=== PATIENT | female | born 2000 | race Two or more races ===

== ENCOUNTER 2025-04-03 16:11 | Emergency (ER) | payer MEDICAID, OTHER ==
[~2025-04-03] VITALS: Ht 157.5 cm; Wt 70.4 kg
--- NOTE | 2025-04-03 16:43 | ED.PDOC ---
HPI Comments HPI: 24 y/o F, with no prior medical history presents to the ED for CC of chest pain. Patient states, she has been experiencing intermittent left-sided chest pain xmonths which worsened, last night (04/02/25). Pain radiates to the left upper extremity. Patient reports, to have experienced similar symptoms in the past and told that symptoms arouse d/t anxiety. Patient further relays, new symptoms of nausea and palpitations following most recent episode yesterday (04/02/25). At this time patient denies shortness of breath, cough, vomiting, or headache. No other symptoms or modifying factors are present at this time. Denies family history of coronary artery disease. Denies any tobacco abuse. Initial Vitals BP: HR: RR: O2 Sat: Temp: Past Medical history: DENIES ANY Past Surgical history: DENIES ANY Medications: Clindamycin Social History: Denies smoking, ETOH, and drug use. Allergies: Cephalexin HPI: Poor Historian. REVIEW OF SYSTEMS: CONSTITUTIONAL: Denies acute: fever, diaphoresis, chills, generalized weakness. HEAD: Denies acute: headache, photophobia Eyes: Denies acute: Double vision, vision loss, eye pain, eye discharge. EARS: Denies acute: tinnitus, hearing loss, ear discharge, ear pain, THROAT: Denies acute: sore throat, swelling, difficulty swallowing , pain with swallowing, change in voice. NECK: Denies acute: neck pain, neck swelling, stiff neck. HEART: Denies acute : LUNGS: Denies acute: SOB, wheezing, cough, hemoptysis ABDOMEN: Denies acute: abdominal pain, Nausea, Vomiting, diarrhea, melena , hematemesis, hematochezia SKIN: Denies acute: rash, redness, lesions, itchiness. EXTREMITIES: Denies acute: calf pain, numbness, tingling, weakness, denies pain in extremity. Denies acute: Low back pain. Neuro: Denies acute: focal neurological deficit, motor or sensory focal neurological deficit, tremors, seizure like activity, confusion, dizziness, change in mental status, loss of bowel or bladder function, cauda equina like symptoms. : Denies acute: dysuria, hematuria, flank pain, increase in urinary frequency. PSYCH: Denies acute: hallucination, suicidal ideation, homicidal ideation. FEMALE: Denies acute: abnormal vaginal bleeding, foul odor, unusual discharge. PHYSICAL EXAM: General: -----no---acute distress, awake and alert. Head: normocephalic, atraumatic. Neck: supple, trachea is midline, no swelling. Throat: Normal phonation. Eyes:, no erythema, no purulent discharge, no proptosis, no icterus. Heart: regular rate, regular rhythm, no significant murmur appreciated. Lungs: no apparent respiratory distress, Able to speak in full sentences. No wheezing, no rhonchi, no crackles. No stridors Clear to auscultation bilaterally. Abdomen: non tender to palpation, non distended, soft, no guarding, no rebound, + bowel sounds. Neuro: Awake, Alert, oriented to name, self, situation, follows commands GCS=15. Speech is normal. Skin: no petechia, no purpura, no cyanosis, non-pale, not jaundice. Lower extremities: --no - Pitting edema no deformity, no focal swelling, no calf TTP. Makes eye contact. moves all four extremities. Face: no apparent facial droop. Ambulating in the ED independently. ED COURSE: DISCLAIMER: This medical document was created using an electronic medical record system with voice recognition software and computerized dictation system. Although this document has been carefully reviewed, there might still be some phonetic and typographical errors. Occasional wrong-word or "sound-alike" substitutions may have occurred due to the inherent limitations of voice recognition software. These areas are purely typographical due to imperfections of the software programs and do not reflect any compromise in the patient's medical care. Please read the chart carefully and recognize, using context, where these substitutions have occurred. Chief Complaint: Chest Pain Time Seen by MD: 16:40 Reviewed Notes: Nurses Notes, Medications, Allergies Allergies: Coded Allergies: Cephalexin (Verified Allergy, Unknown, 04/03/25) Information Source: Patient Mode of Arrival: Ambulatory Severity: Moderate Timing: Months Duration: Since onset Prehospital treatment: None Location: Chest (L) Radiation: No Radiation Onset: At Rest Cardiac Risk Factors: None PE Risk Factors: None History of: Similar pain in past Modifying Factors: Nothing Associated Signs and Symptoms: None EKG EKG : Pulse Rate (adult): 110 [place]: Normal Cardiac Rhythm: ST Block: None Hypertrophy: None ST: Normal Was a procedure done? Was a procedure done?: No CP Differential Dx Differential Diagnosis: Anxiety / Panic Attack, Sinus Tachycardia X-Ray, Labs, Meds, VS Vital Signs Date Time Temp Pulse Resp B/P (MAP) Pulse Ox O2 Delivery O2 Flow Rate FiO2 04/03/25 17:15 85 04/03/25 16:43 110 04/03/25 16:15 110 04/03/25 16:13 99.3 86 18 126/87 99 99.3 Lab Test 04/03/25 17:44 04/03/25 16:35 04/03/25 16:29 Range/Units Troponin I High Sensitivity < 3 L < 3 L </=34 ng/L White Blood Count 11.1 H 4.4-10.8 10^3/uL Red Blood Count 4.91 4.0-5.20 10^6/uL Hemoglobin 14.8 12.2-16.2 g/dL Hematocrit 42.9 36.0-46.0 % Mean Corpuscular Volume 87.5 80.0-100.0 fL Mean Corpuscular Hemoglobin 30.1 28.0-32.0 pg Mean Corpuscular Hemoglobin Concent 34.4 32.0-36.0 g/dL Red Cell Distribution Width 12.9 11.8-14.3 % Platelet Count 463 H 140-450 10^3/uL Mean Platelet Volume 6.9 6.9-10.8 fL Neutrophils (%) (Auto) 57.8 37.0-80.0 % Lymphocytes (%) (Auto) 35.3 10.0-50.0 % Monocytes (%) (Auto) 5.5 0.0-12.0 % Eosinophils (%) (Auto) 0.8 0.0-7.0 % Basophils (%) (Auto) 0.6 0.0-2.0 % Neutrophils # (Auto) 6.4 1.6-8.6 10 ^3/uL Lymphocytes # (Auto) 3.9 0.4-5.4 10 ^3/uL Monocytes # (Auto) 0.6 0-1.3 10 ^3/uL Eosinophils # (Auto) 0.1 0-0.8 10 ^3/uL Basophils # (Auto) 0.1 0-0.2 10 ^3/uL Nucleated Red Blood Cells 0.0 % D-Dimer, Quantitative < 0.19 0.0-0.49 mg/L FEU Sodium Level 139 136-145 mmol/L Potassium Level 3.6 3.5-5.1 mmol/L Chloride Level 105 98-107 mmol/L Carbon Dioxide Level 25 20-31 mmol/L Anion Gap 9 5-15 Blood Urea Nitrogen 10 9-23 mg/dL Creatinine 0.60 0.550-1.02 mg/dL Glomerular Filtration Rate Calc 130 >90 mL/min BUN/Creatinine Ratio 16.7 10.0-20.0 Serum Glucose 93 74-106 mg/dL Calcium Level 9.2 8.7-10.4 mg/dL Magnesium Level 1.7 1.6-2.6 mg/dL Urine Color Light-yellow Yellow Urine Clarity Turbid H Clear Urine pH 6.0 5.0-9.0 Urine Specific [place] 1.021 1.001-1.035 Urine Protein Negative Negative Urine Ketones Negative Negative Urine Blood Negative Negative /uL Urine Nitrite Negative Negative Urine Bilirubin Negative Negative Urine Urobilinogen Normal Negative mg/dL Urine Leukocyte Esterase 3+ Negative /uL Urine RBC <1 0 - 4 /hpf Urine Microscopic WBC 11 H 0-5 /HPF Urine Squamous Epithelial Cells Mod <5 /hpf Urine Bacteria Few H None Seen /hpf Urine Mucus Few None Seen Urine Glucose Normal Normal mg/dL Urine Test Negative Negative Urine Opiates Screen Neg NEGATIVE Urine Fentanyl Screen Neg NEGATIVE Urine Barbiturates Screen Neg NEGATIVE Urine Phencyclidine Screen Neg NEGATIVE Urine Amphetamines Screen Neg NEGATIVE Urine Benzodiazepines Screen Neg NEGATIVE Urine Cocaine Screen Neg NEGATIVE Urine Cannabinoids Screen Neg NEGATIVE Time of 1ST Reevaluation: 17:10 Reevaluation 1ST: Unchanged Patient Education/Counseling: Diagnosis, Treatment Family Education/Counseling: No Family Present SEPSIS Sepsis Screen Date sepsis recognized/suspect: Apr 03, 2025 Time Sepsis recognized/suspect: 1612 Recent Procedure: No On Antibiotic Therapy: No Respiratory Rate >20: No Heart Rate >90: No Temp<36 C (96.8 F) or >38.3 C: No SBP <90 or MAP <65 mmHG: No New Acute Mental Status Change: No Is the patient on CPAP, BIPAP,: No Physician Orders Electrocardigram (04/03/25 16:22) Electrocardigram (04/03/25 17:22) Electrocardigram (04/03/25 19:22) Operations Manager Station (04/03/25 ) Chest Portable (04/03/25 16:29) Troponin-I Hs (04/03/25 19:29) Vital Signs Date Time Temp Pulse Resp B/P (MAP) Pulse Ox O2 Delivery O2 Flow Rate FiO2 04/03/25 17:15 85 04/03/25 16:43 110 04/03/25 16:15 110 04/03/25 16:13 99.3 86 18 126/87 99 99.3 Laboratory Tests Test 04/03/25 16:35 White Blood Count 11.1 10^3/uL (4.4-10.8) H Departure 1 Departure Time of Disposition: 19:04 Impression: Primary Impression: Chest pain Disposition: HOME / SELF CARE / HOMELESS Condition: Stable Additional Instructions: Additional instructions: Please read all instructions provided in this packet carefully. You MUST follow-up with your primary care/family doctor in 1 to 2 days. If you are unable to see your primary care/family doctor, please return to our emergency room for re-assessment and re-evaluation in 1 to 2 days. Return to the emergency room here in our facility or to the nearest ER [facility] if your symptoms change or worsen. CONSULTATIONS: you MUST Follow-up for consultation as soon as possible with: -cardiology in 1-2 days. Please call for appointment. You MUST call the consultants office yourself to make an appointment. You may need to arrange that through your insurance and/or your primary/family doctor. If you are unable to see the framing consultant in 1 to 2 days, you must return to our emergency room (or any other ER of your choice) for re-assessment and re- evaluation. Adequate fluid hydration. Although you have been discharged from the Emergency Department, this does not mean that you have a "clean bill of health". No definitive diagnosis for your symptoms has been made today. It is possible that you are in the process of developing a serious illness. This is why you must return to the ED without fail if any new or worsening symptoms develop. Discharged With: Self Heart Score Heart Score: Heart Score Response (Comments) Value History Slightly Suspicious 0 EKG Normal 0 Age <45 0 Risk Factors No known risk factors 0 Troponin Normal limit 0 Total 0 Critical Care Note Critical Care Time?: No I personally scribed for JADON CANCHOLA DO ([email or web address]) on 04/03/25 at 16:43. Electronically submitted by Lakeisha Ignacio ([email or web address]). I personally scribed for JADON CANCHOLA DO ([email or web address]) on 04/03/25 at 16:48. Electronically submitted by Lakeisha Ignacio ([email or web address]). JADON CANCHOLA DO Apr 03, 2025 16:43
[2025-04-03 16:49] LABS: Hematocrit 42.9 % (36.0-46.0); Hemoglobin 14.8 g/dL (12.2-16.2); Mean Corpuscular Hemoglobin 30.1 pg (28.0-32.0); Mean Corpuscular Volume 87.5 fL (80.0-100.0); Nucleated Red Blood Cells % 0.0 %
[2025-04-03 16:59] LABS: Chloride 105 mmol/L (98-107); Potassium 3.6 mmol/L (3.5-5.1); Sodium 139 mmol/L (136-145)
[2025-04-03 17:00] LABS: Anion Gap 9 (5-15); Calcium 9.2 mg/dL (8.7-10.4); Carbon Dioxide 25 mmol/L (20-31)
[2025-04-03 17:05] LABS: BUN/Creatinine Ratio 16.7 (10.0-20.0); Blood Urea Nitrogen 10 mg/dL (9-23); Glucose 93 mg/dL (74-106); Magnesium 1.7 mg/dL (1.6-2.6)
[2025-04-03 18:22] LABS: Amphetamine Screen, Urine Neg (NEGATIVE); Barbiturate Scree,Urine Neg (NEGATIVE); Benzodiazephine Screen, Urine Neg (NEGATIVE); Cannabinoid Screen, Urine Neg (NEGATIVE); Cocaine Screen, Urine Neg (NEGATIVE); Opiate Scree,Urine Neg (NEGATIVE); Phencyclidine Screen, Urine Neg (NEGATIVE)
[2025-04-03 18:23] LABS: Urine Protein, UAD Negative (Negative)
--- NOTE | 2025-04-03 18:52 | DVH ---
CHEST RADIOGRAPH REASON FOR EXAM: Chest pain COMPARISON: None TECHNIQUE: One view of the chest is provided FINDINGS: The cardiomediastinal silhouette is within normal limits for technique. There is no focal a irspace disease. There is no significant pleural effusion. No acute bony abnormality is identified. IMPRESSION: No radiographic evidence of acute cardiopulmonary process.
[2025-04-03 20:34] VITALS: BP 127/76; TEMP 98.5
[2025-04-03 20:52] VITALS: PULSE 78; RESP 16; O2SAT 96
--- NOTE | 2025-04-04 07:08 | ECG ---
[facility] Test Date: 2025-04-03 Test Time: 19:24:29 Pat Name: GRAYSON PRICE Department: Room: Gender: F Manager Recruitment: PRABHA : 2000 Requested By: JADON CANCHOLA Order Number: [id number] Reading MD: Measurements Intervals [place] Rate: 73 P: 8 LA: 146 QRS: 51 QRSD: 72 T: 14 QT: 393 QTc: 433 Interpretive Statements Sinus rhythm Borderline T wave abnormalities Please click the below link to view image of tracing.
--- NOTE | 2025-04-04 18:59 | ECG ---
[facility] Test Date: 2025-04-03 Test Time: 16:15:13 Pat Name: GRAYSON PRICE Department: ED Room: Gender: F Administration Assistant: [email or web address] : 2000 Requested By: JADON CANCHOLA Order Number: [id number] Reading MD: Measurements Intervals [place] Rate: 110 P: 48 [place]: 153 QRS: 59 QRSD: 64 T: -10 QT: 358 QTc: 485 Interpretive Statements Sinus tachycardia Borderline T abnormalities, diffuse leads Borderline prolonged QT interval Please click the below link to view image of tracing.
--- NOTE | 2025-04-04 18:59 | ECG ---
[facility] Test Date: 2025-04-03 Test Time: 17:15:34 Pat Name: GRAYSON PRICE Department: ED Room: Gender: F Bell Clerk: [email or web address] : 2000 Requested By: JADON CANCHOLA Order Number: [id number] Reading MD: Measurements Intervals [place] Rate: 85 P: 12 AL: 147 QRS: 55 QRSD: 75 T: 13 QT: 377 QTc: 449 Interpretive Statements Sinus rhythm Borderline T wave abnormalities Please click the below link to view image of tracing.
== END 2025-04-03 20:58 | disposition home or self-care (01) ==
LOC: ER 16:11
DX: R07.89 Other chest pain (principal); Z79.899 Other long term (current) drug therapy; Z88.1 Allergy status to other antibiotic agents
CPT/HCPCS: 36415; 71045; 80048; 80307; 81001; 81025; 83735; 84484; 85025; 85379; 93005